=== PATIENT | female | born 1950 | race Caucasian/White ===

== ENCOUNTER 2016-06-06 12:02 | Emergency (ER) | payer MEDICARE, BC ==
[~2016-06-06 12:02] MED LIST: /WARF25TA OR; ACET500C OR; BIOTPOW20 PO; BISO10TA2 OR; CALC12502 OR; CALCTAB22 OR; MULTIVIT PO; PERC5TAB8 OR; VIT D 2000 PO; VITA500T OR; VITAMIN D PO
[2016-06-06 13:06] LABS: BASO # 0.1 K/mm3 (0.0-0.2); EOS % 0.6 % (0.0-3.0); LARGE UNSTAINED CELL # 0.1 K/mm3 (0.0-0.4); LARGE UNSTAINED CELL % 2.3 % (0.0-4.0); LYMPH # 0.7 K/mm3 (1.5-4.5); LYMPH % 10.9 % (24.0-44.0); MEAN CORPUSCULAR HGB CONC 31.9 g/dl (32.0-36.5); MONO # 0.5 K/mm3 (0.0-0.8); MONO % 8.8 % (0.0-5.0); NEUTROPHILS % 75.5 % (36.0-66.0); PLATELET COUNT, AUTOMATED 194 k/mm3 (150-450); RED CELL DISTRIBUTION WIDTH 13.4 % (11.5-14.5); WHITE BLOOD COUNT 5.3 K/mm3 (4.0-10.0)
[2016-06-06 13:22] LABS: ALBUMIN 3.8 GM/DL (3.2-5.2); ALBUMIN/GLOBULIN RATIO 0.97 (1.00-1.93); BILIRUBIN,DIRECT 0.1 MG/DL (0.0-0.2); BILIRUBIN,TOTAL 0.5 MG/DL (0.2-1.0); CALCIUM LEVEL 9.1 MG/DL (8.8-10.2); CREATININE FOR GFR 1.14 MG/DL (0.55-1.02); GLOMERULAR FILTRATION RATE 50.6 (>45); POTASSIUM SERUM 3.6 MEQ/L (3.5-5.1); TOTAL PROTEIN 7.7 GM/DL (6.4-8.2)
[2016-06-06] MEDS ORDERED: ACETAMINOPHEN 325 MG TAB As Ordered ONE (14:48)
[2016-06-06] MEDS ORDERED: ONDANSETRON 4MG/2ML VIAL (J2405) As Ordered ONE (14:48)
[2016-06-06] MEDS ORDERED: OSELTAMIVIR PHOSPHATE 75 MG CAP (TAMIFLU) As Ordered ONE (15:43)
--- NOTE | 2016-06-06 15:53 | REP ---
PA and lateral chest 06/06/2016 Indication: Cough and fever Comparison: PA and lateral chest 02/13/2013 performed at [facility] Findings: The cardiomediastinal silhouette is normal. Small amount of left basilar atelectasis and/or scarring is noted. There are diminished lung volumes bilaterally. There are [id number] degenerative changes in thoracic spine. Soft tissues are within normal limits Impression 1. Cardiomediastinal silhouette is normal. 2. Diminished lung volumes bilaterally. Small amount of left basilar atelectasis and/or scarring Signed by Ofelia Tobin MD 06/06/2016 03:44 P
--- NOTE | 2016-06-06 16:12 | EDDOCDS ---
Physician Documentation [facility] Name: Maribel Hamlin Age: 65 yrs Sex: Female : 1950 Arrival Date: 06/06/2016 Time: 12:02 Bed I1 / M1 Private MD: Amisha Zambrano E Disposition: 06/06/16 15:45 Discharged to Home/Self Care. Impression: Influenza due to identified novel influenza A virus. - Condition is Stable. - Discharge Instructions: Influenza Adult. - Prescriptions for Tamiflu 75 mg Oral Capsule - take 1 capsule by ORAL route every 12 hours for 5 days; 9 capsule. ZOFRAN ODT 4 mg - dissolve 1 tablet by ORAL route 4 times per day As needed do not chew, do not swallow whole; 10 tablet. - Medication Reconciliation, Work Release Form - 5 day, Local Pharmacy Hours form. - Follow up: Amisha Zambrano; When: 4 - 5 days; Reason: Recheck today's complaints. Follow up: Emergency Department; When: As needed; Reason: Fever > 102F, Trouble breathing, Worsening of conditions. - Problem is new. - Symptoms have improved. - Notes: stop z pack Historical: - Allergies: Ibuprofen; - Home Meds: 1. bisoprolol fumarate 5 mg oral tab 1 tab once daily (Last dose: 06/05/2016) 2. calcium 600 mg daily (Last dose: 06/05/2016) 3. fexofenadine 180 mg Oral tab 1 tab once daily (Last dose: 06/05/2016) 4. valsartan 160 mg oral tab 1 tab once daily with dinner (Last dose: 06/05/2016) 5. multivitamin Oral 1 tablet daily 6. Vitamin C Oral daily - PMHx: Hypertension; - PSHx: Hip replacements, bilateral; - Social history: Smoking status: Patient states former smoker of tobacco. No barriers to communication noted. - Family history: Not pertinent. - : The pt / caregiver states he / she is not on anticoagulants. Home medication list is obtained from the patient. - Exposure Risk Screening:: None identified. Vital Signs: 06/06 12:04 BP 155 / 93; Pulse 112; Resp 18 S; Temp 100.0(O); Pulse Ox 96% on R/A; Weight 104.33 kg gr2 / 230.01 lbs (R); Height 5 ft. 8 in. (172.72 cm) (R); Pain 6/10; 15:31 BP 127 / 64; Pulse 97; Resp 20; Temp 100.9; Pulse Ox 96% ; Pain 3/10; jam1 12:04 Body Mass Index 34.97 (104.33 kg, 172.72 cm) gr2 MDM: 12:36 If pre-RCE wait time >60 minutes, inform reg. staff to do full reg ordered. ar2 12:36 If pt is female >10yo <50yo order UCG ordered. ar2 12:36 Undress patient appropriately for examination ordered. ar2 12:36 BMP Ordered. EDMS 12:36 CBC with Diff Ordered. EDMS 12:36 Lipase Ordered. EDMS 12:36 Liver Profile Ordered. EDMS 12:37 UA Ordered. EDMS 14:34 BMP Reviewed. ar2 14:34 CBC with Diff Reviewed. ar2 14:34 Liver Profile Reviewed. ar2 14:34 UA Reviewed. ar2 14:34 Lipase Reviewed. ar2 14:37 Strep Screen, Nursing ordered. ar2 14:37 NS 0.9% 1000 ml IV at bolus once ordered. ar2 14:37 Ondansetron 4 mg IVP once ordered. ar2 14:37 Acetaminophen Tablet 975 mg PO once ordered. ar2 14:38 -Influenza A&B Rapid Antigen - Nose Ordered. EDMS 14:38 Chest, 2 View (pa\E\lat) Ordered. EDMS 14:38 Acetaminophen Tablet 975 mg PO once ordered. jf3 14:38 Ondansetron 4 mg IVP once ordered. jf3 14:38 NS 0.9% 1000 ml IV at bolus once ordered. jf3 14:39 IV Saline Lock ordered. jf3 14:41 Financial registration complete. jls1 14:56 [facility] Payment Agreement was scanned into [employer] and attached to record. jls1 15:37 -Influenza A&B Rapid Antigen - Nose Reviewed. ar2 15:39 GATS (NEGATIVE STREP SCREEN) Ordered. EDMS 15:42 Oseltamivir 75 mg PO once ordered. ar2 Administered Medications: 14:55 Drug: NS 0.9% 1000 ml [sodium chloride 0.9 % intravenous solution] Route: IV; Rate: srm bolus; Site: right antecubital; 16:11 Follow up: IV Status: Completed infusion; IV Intake: 1000ml dsf 14:55 Drug: Ondansetron 4 mg [ondansetron HCl 2 mg/mL intravenous solution (2 mL)] Route: [facility] IVP; Site: right antecubital; 14:55 Drug: Acetaminophen 975 mg [acetaminophen 325 mg tablet (3 tabs)] Route: PO; srm 15:47 Drug: Oseltamivir 75 mg [oseltamivir 75 mg capsule (1 caps)] Route: PO; srm Signatures: Dispatcher [employer] Collette Oviedo RN RN [facility] Emerson Lacey, PA-C PA-C ar2 Cadence Roth RN RN dsf Lilliana Estes RN RN Malissa Mccray jls1 Hernandez BoydRN RN jf3 The chart was reviewed and I authenticate all verbal orders and agree with the evaluation and treatment provided.Attachments: 14:56 [facility] Payment Agreement jls1 MTDD
--- NOTE | 2016-06-06 16:12 | EDDOCDS ---
Nurse's Notes [facility] Name: Maribel Hamlin Age: 65 yrs Sex: Female : 1950 Arrival Date: 06/06/2016 Time: 12:02 Bed I1 / M1 Private MD: Amisha Zambrano E Diagnosis: Influenza due to identified novel influenza A virus Presentation: 06/06 12:11 Presenting complaint: Patient states: I just don't feel good, got into see Dr. Cast's [facility] nurse yesterday, started her on a Z Pack but now still don't feel better, have headache, stomach pain and cough and my temperature is up. Adult Sepsis Screening: The patient does not have new or worsening altered mentation. Patient's respiratory rate is less than 22. Systolic blood pressure is greater than 100. Patient has a qSOFA score of 0- Negative Sepsis Screen. Suicide/Homicide risk assessment- the patient denies having any suicidal and/or homicidal ideations and does not present with any other emotional, behavioral or mental health complaints. 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 Transition of care: patient was not received from another setting of care. 12:11 Acuity: SHAHEEN Level 3 [facility] 12:11 Method Of Arrival: Wheelchair [facility] Triage Assessment: 12:16 General: Appears ill, Behavior is anxious, cooperative. Pain: Location: head Pain [facility] currently is 6 out of 10 on a pain scale. Neurological: Level of Consciousness is awake, alert, Oriented to person, place, time. Respiratory: Airway is patent Respiratory effort is even, unlabored, Respiratory pattern is regular, symmetrical. GI: Reports nausea, vomiting. Derm: Skin is pink, warm & dry. Historical: - Allergies: Ibuprofen; - Home Meds: 1. bisoprolol fumarate 5 mg oral tab 1 tab once daily (Last dose: 06/05/2016) 2. calcium 600 mg daily (Last dose: 06/05/2016) 3. fexofenadine 180 mg Oral tab 1 tab once daily (Last dose: 06/05/2016) 4. valsartan 160 mg oral tab 1 tab once daily with dinner (Last dose: 06/05/2016) 5. multivitamin Oral 1 tablet daily 6. Vitamin C Oral daily - PMHx: Hypertension; - PSHx: Hip replacements, bilateral; - Social history: Smoking status: Patient states former smoker of tobacco. No barriers to communication noted. - Family history: Not pertinent. - : The pt / caregiver states he / she is not on anticoagulants. Home medication list is obtained from the patient. - Exposure Risk Screening:: None identified. Screenin:11 Screening information is obtained from the patient. Fall risk: No risks identified. dsf Assistance ADL's: requires no assistance with activities of daily living. Abuse/DV Screen: The patient / caregiver reports he/she is: not in a situation that causes fear, pain or injury. Nutritional screening: No deficits noted. Advance Directives: Currently, there is no health care proxy. home support is adequate. Assessment: 15:00 General: Appears uncomfortable, making grunting noises with movement. . Neurological: srm Level of Consciousness is awake, alert, Oriented to person, place, time, Moves all extremities. Full function Speech is normal, Facial symmetry appears normal. GI: Abdomen is obese, Bowel sounds present X 4 quads. Abd is soft and non tender X 4 quads. Reports nausea, vomiting. Derm: lips and tongue dry. 15:47 General: Appears in no apparent distress, Behavior is appropriate for age, cooperative. srm Neurological: No deficits noted. EENT: No deficits noted. EENT: throat sounds full. Cardiovascular: No deficits noted. Respiratory: No deficits noted. Vital Signs: 12:04 BP 155 / 93; Pulse 112; Resp 18 S; Temp 100.0(O); Pulse Ox 96% on R/A; Weight 104.33 kg gr2 (R); Height 5 ft. 8 in. (172.72 cm) (R); Pain 6/10; 15:31 BP 127 / 64; Pulse 97; Resp 20; Temp 100.9; Pulse Ox 96% ; Pain 3/10; jam1 12:04 Body Mass Index 34.97 (104.33 kg, 172.72 cm) gr2 Vitals: 12:04 Log In Time: June 06, 2016 at 12:04. gr2 15:37 Strep Screen is obtained and tested: Negative, [facility]G [facility] sent. ED Course: 12:03 Patient visited by Adriano Moreno. gr2 12:03 Patient moved to Waiting gr2 12:04 Amisha Zambrano is Private Physician. gr2 12:05 Patient visited by Adriano Moreno. gr2 12:05 Patient moved to Pre RCE gr2 12:13 Triage Initiated cjh 12:50 Patient moved to PR1 / 25 sew 12:58 Patient moved to Pre RCE sew 12:58 UA Sent. sew 12:58 BMP Sent. sew 12:58 CBC with Diff Sent. sew 12:58 Lipase Sent. sew 12:58 Liver Profile Sent. sew 12:58 Labs drawn. (by ED staff). Sent per order to lab. Urine collected. Clean catch sew specimen. Urine specimen sent to lab. 12:59 Patient visited by Guadalupe Dempsey. sew 13:06 Patient moved to Triage 1 kr3 14:25 Emerson Lacey PA-C is PHCP. ar2 14:25 Davide Bowman MD is Attending Physician. ar2 14:25 Patient visited by Emerson Lacey PA-C. ar2 14:39 Patient moved to I1 / M1 jf3 14:56 [facility] Payment Agreement was scanned into [employer] and attached to record. jls1 15:00 -Influenza A&B Rapid Antigen - Nose Sent. srm 15:00 Inserted saline lock: 20 gauge in right antecubital area and blood collected. srm 15:02 Patient visited by Collette Ugarte RN. srm 15:16 Patient visited by Lilliana Chnu PCA. jam1 15:42 GATS (NEGATIVE STREP SCREEN) Sent. srm 15:44 Amisha Zambrano is Referral Physician. ar2 15:48 Patient visited by Collette Ugarte RN. srm 16:08 Chest, 2 View (pa\E\lat) Returned. EDMS 16:11 The patient / caregiver is instructed regarding the plan of care and ED course. dsf 16:11 Discontinued lock intact, bleeding controlled, pressure dressing applied, No dsf redness/swelling at site. No procedures done that require assistance. Administered Medications: 14:55 Drug: NS 0.9% 1000 ml [sodium chloride 0.9 % intravenous solution] Route: IV; Rate: srm bolus; Site: right antecubital; 16:11 Follow up: IV Status: Completed infusion; IV Intake: 1000ml dsf 14:55 Drug: Ondansetron 4 mg [ondansetron HCl 2 mg/mL intravenous solution (2 mL)] Route: srm IVP; Site: right antecubital; 14:55 Drug: Acetaminophen 975 mg [acetaminophen 325 mg tablet (3 tabs)] Route: PO; srm 15:47 Drug: Oseltamivir 75 mg [oseltamivir 75 mg capsule (1 caps)] Route: PO; srm Intake: 16:11 IV: 1000.00ml; Total: 1000.00ml. dsf Order Results: Lab Order: BMP; SPEC'M 06/06/16 12:58 Test: GLUCOSE, FASTING; Value: 110; Range: 80-110; Units: MG/DL; Status: F Test: BLOOD UREA NITROGEN; Value: 12; Range: 7-18; Units: MG/DL; Status: F Test: CREATININE FOR GFR; Value: 1.14; Range: 0.55-1.02; Abnormal: Above high normal; Units: MG/DL; Status: F Test: GLOMERULAR FILTRATION RATE; Value: 50.6; Range: >45; Status: F Test: SODIUM LEVEL; Value: 140; Range: 136-145; Units: MEQ/L; Status: F Test: POTASSIUM SERUM; Value: 3.6; Range: 3.5-5.1; Units: MEQ/L; Status: F Test: CHLORIDE LEVEL; Value: 104; Range: 98-107; Units: MEQ/L; Status: F Test: CARBON DIOXIDE LEVEL; Value: 28; Range: 21-32; Units: MEQ/L; Status: F Test: ANION GAP; Value: 8; Range: 8-16; Units: MEQ/L; Status: F Test: CALCIUM LEVEL; Value: 9.1; Range: 8.8-10.2; Units: MG/DL; Status: F Test Note: ; Units are mL/min/1.73 m2 Chronic Kidney Disease Staging per NKF: Stage I & II GFR >=60 Normal to Mildly Decreased Stage III GFR 30-59 Moderately Decreased Stage IV GFR 15-29 Severely Decreased Stage V GFR <15 Very Little GFR Left ESRD GFR <15 on NOC TECHNICIAN Lab Order: CBC with Diff; SPEC'M 06/06/16 12:58 Test: WHITE BLOOD COUNT; Value: 5.3; Range: 4.0-10.0; Units: K/mm3; Status: F Test: RED BLOOD COUNT; Value: 4.84; Range: 4.00-5.40; Units: M/mm3; Status: F Test: HEMOGLOBIN; Value: 14.1; Range: 12.0-16.0; Units: g/dl; Status: F Test: HEMATOCRIT; Value: 44.1; Range: 36.0-47.0; Units: %; Status: F Test: MEAN CORPUSCULAR VOLUME; Value: 91.0; Range: 80.0-96.0; Units: fl; Status: F Test: MEAN CORPUSCULAR HEMOGLOBIN; Value: 29.0; Range: 27.0-33.0; Units: pg; Status: F Test: MEAN CORPUSCULAR HGB CONC; Value: 31.9; Range: 32.0-36.5; Abnormal: Below low normal; Units: g/dl; Status: F Test: RED CELL DISTRIBUTION WIDTH; Value: 13.4; Range: 11.5-14.5; Units: %; Status: F Test: PLATELET COUNT, AUTOMATED; Value: 194; Range: 150-450; Units: k/mm3; Status: F Test: NEUTROPHILS %; Value: 75.5; Range: 36.0-66.0; Abnormal: Above high normal; Units: %; Status: F Test: LYMPH %; Value: 10.9; Range: 24.0-44.0; Abnormal: Below low normal; Units: %; Status: F Test: MONO %; Value: 8.8; Range: 0.0-5.0; Abnormal: Above high normal; Units: %; Status: F Test: EOS %; Value: 0.6; Range: 0.0-3.0; Units: %; Status: F Test: BASO %; Value: 2.0; Range: 0.0-1.0; Abnormal: Above high normal; Units: %; Status: F Test: LARGE UNSTAINED CELL %; Value: 2.3; Range: 0.0-4.0; Units: %; Status: F Test: NEUTROPHILS #; Value: 4.0; Range: 1.8-7.7; Units: K/mm3; Status: F Test: LYMPH #; Value: 0.7; Range: 1.5-4.5; Abnormal: Below low normal; Units: K/mm3; Status: F Test: MONO #; Value: 0.5; Range: 0.0-0.8; Units: K/mm3; Status: F Test: EOS #; Value: 0.0; Range: 0.0-0.50; Units: K/mm3; Status: F Test: BASO #; Value: 0.1; Range: 0.0-0.2; Units: K/mm3; Status: F Test: LARGE UNSTAINED CELL #; Value: 0.1; Range: 0.0-0.4; Units: K/mm3; Status: F Lab Order: Lipase; [facility] 06/06/16 12:58 Test: LIPASE; Value: 77; Range: 73-393; Units: U/L; Status: F Lab Order: Liver Profile; [facility]' 06/06/16 12:58 Test: AST/SGOT; Value: 23; Range: 15-37; Units: U/L; Status: F Test: ALT/SGPT; Value: 36; Range: 12-78; Units: U/L; Status: F Test: ALKALINE PHOSPHATASE; Value: 109; Range: 45-117; Units: U/L; Status: F Test: BILIRUBIN,TOTAL; Value: 0.5; Range: 0.2-1.0; Units: MG/DL; Status: F Test: BILIRUBIN,DIRECT; Value: 0.1; Range: 0.0-0.2; Units: MG/DL; Status: F Test: TOTAL PROTEIN; Value: 7.7; Range: 6.4-8.2; Units: GM/DL; Status: F Test: ALBUMIN; Value: 3.8; Range: 3.2-5.2; Units: GM/DL; Status: F Test: ALBUMIN/GLOBULIN RATIO; Value: 0.97; Range: 1.00-1.93; Abnormal: Below low normal; Status: F Lab Order: UA; [facility] 06/06/16 12:53 Test: APPEARANCE, URINE; Value: CLOUDY; Range: CLEAR; Abnormal: Above high normal; Status: F Test: COLOR, URINE; Value: YELLOW; Range: YELLOW; Status: F Test: PH,URINE; Value: 6.0; Range: 5.0-9.0; Units: UNITS; Status: F Test: SPECIFIC GRAVITY URINE AUTO; Value: 1.026; Range: 1.002-1.035; Status: F Test: PROTEIN, URINE AUTO; Value: 2+; Range: NEGATIVE; Abnormal: Above high normal; Units: mg/dL; Status: F Test: GLUCOSE, URINE (UA) AUTO; Value: 1+; Range: NEGATIVE; Abnormal: Above high normal; Units: mg/dL; Status: F Test: KETONE, URINE AUTO; Value: 1+; Range: NEGATIVE; Abnormal: Above high normal; Units: mg/dL; Status: F Test: UROBILINOGEN, URINE AUTO; Value: 0.2; Range: 0.0-2.0; Units: mg/dL; Status: F Test: BILIRUBIN, URINE AUTO; Value: NEGATIVE; Range: NEGATIVE; Status: F Test: NITRITE, URINE AUTO; Value: NEGATIVE; Range: NEGATIVE; Status: F Test: LEUKOCYTE ESTERASE, URINE AUTO; Value: 2+; Range: NEGATIVE; Abnormal: Above high normal; Status: F Test: BLOOD, URINE BLOOD; Value: 1+; Range: NEGATIVE; Abnormal: Above high normal; Status: F Test: WBC, URINE AUTO; Value: 41; Range: 0-3; Abnormal: Above high normal; Units: /HPF; Status: F Test: RBC, URINE AUTO; Value: 43; Range: 0-3; Abnormal: Above high normal; Units: /HPF; Status: F Test: BACTERIA, URINE AUTO; Value: NEGATIVE; Range: NEGATIVE; Status: F Test: SQUAMOUS EPITHELIAL CELL UR AU; Value: 42; Range: 0-6; Units: /HPF; Status: F Test: MUCUS, URINE; Value: SMALL; Range: NEGATIVE; Status: F Test: HYALINE CAST, URINE AUTO; Value: 0; Range: 0-1; Units: /LPF; Status: F Lab Order: -Influenza A&B Rapid Antigen - Nose; SPEC'M 06/06/16 14:57 Test: INFLUENZA A RAPID SCR by ICA; Value: INFLUENZA A RESULTS POSITIVE; Abnormal: Abnormal; Status: F Test: INFLUENZA A RAPID SCR by ICA; Value: Comments:; Status: F Test: INFLUENZA B RAPID SCR by ICA; Value: INFLUENZA B RESULTS NEGATIVE; Status: F Test Note: ; The Influenza test is a direct rapid immunoassay for the qualitative detection of Influenza viral antigen. Cell culture (Viral Culture) testing should be considered to confirm NEGATIVE results and to assist in detecting other viruses that can provide similar clinical symptoms. Please contact the lab within 24 hours ([phone]) if confirmatory testing is desired. Radiology Order: Chest, 2 View (pa\E\lat) Test: Chest, 2 View (pa\E\lat) REASON FOR EXAMINATION: cough, fever; PA and lateral chest 06/06/2016; ; Indication: Cough and fever; ; Comparison: PA and lateral chest 02/13/2013 performed at [facility]; ; Findings: The cardiomediastinal silhouette is normal. Small amount of left; basilar atelectasis and/or scarring is noted. There are diminished lung volumes; bilaterally. There are pfts-ok-ebaqiell degenerative changes in thoracic spine.; Soft tissues are within normal limits; ; Impression; 1. Cardiomediastinal silhouette is normal.; 2. Diminished lung volumes bilaterally. Small amount of left basilar; atelectasis and/or scarring; ; ; ; ; Signed by; Ofelia Tobin MD 06/06/2016 03:44 P; Outcome: 15:45 Discharge ordered by Provider. ar2 16:11 Discharge Assessment: Patient awake, alert and oriented x 3. No cognitive and/or dsf functional deficits noted. Patient verbalized understanding of disposition instructions. patient administered narcotics - no. The following High Risk Discharge criteria are identified: None. Discharged to home ambulatory, with significant other. Condition: stable. Discharge instructions given to patient, Instructed on discharge instructions, follow up and referral plans. medication usage, Demonstrated understanding of instructions, medications, Pt was receptive of discharge instructions/ teaching. Prescriptions given X 2, Work note provided to patient. No special radiology studies were completed. Property sent home with patient. 16:12 Patient left the ED. dsf Signatures: Dispatcher [employer] EDMS Collette Ugarte, RN RN Lilliana Doll, NARENDRA UNDERCOVER COP jam1 Anamaria Rios,RN RN kr3 Emerson Lacey PA-C PA-C ar2 Cadence Roth,RN RN dsf Lilliana Estes,RN RN Guadalupe Dixon Gainslee gr2 Malissa Turk jls1 Hernandez Boyd,RN RN jf3 MTDD
--- NOTE | 2016-06-08 17:13 | EDDOCDS ---
Nurse's Notes [facility] Name: Maribel Hamlin Age: 65 yrs Sex: Female : 1950 Arrival Date: 06/06/2016 Time: 12:02 Bed I1 / M1 Private MD: Amisha Zambrano E Diagnosis: Influenza due to identified novel influenza A virus Presentation: 06/06 12:11 Presenting complaint: Patient states: I just don't feel good, got into see Dr. Cast's [facility] nurse yesterday, started her on a Z Pack but now still don't feel better, have headache, stomach pain and cough and my temperature is up. Adult Sepsis Screening: The patient does not have new or worsening altered mentation. Patient's respiratory rate is less than 22. Systolic blood pressure is greater than 100. Patient has a qSOFA score of 0- Negative Sepsis Screen. Suicide/Homicide risk assessment- the patient denies having any suicidal and/or homicidal ideations and does not present with any other emotional, behavioral or mental health complaints. Status: Patient is not a claims service adjustor or dependent. Transition of care: patient was not received from another setting of care. 12:11 Acuity: SHAHEEN Level 3 [facility] 12:11 Method Of Arrival: Wheelchair [facility] Triage Assessment: 12:16 General: Appears ill, Behavior is anxious, cooperative. Pain: Location: head Pain [facility] currently is 6 out of 10 on a pain scale. Neurological: Level of Consciousness is awake, alert, Oriented to person, place, time. Respiratory: Airway is patent Respiratory effort is even, unlabored, Respiratory pattern is regular, symmetrical. GI: Reports nausea, vomiting. Derm: Skin is pink, warm & dry. Historical: - Allergies: Ibuprofen; - Home Meds: 1. bisoprolol fumarate 5 mg oral tab 1 tab once daily (Last dose: 06/05/2016) 2. calcium 600 mg daily (Last dose: 06/05/2016) 3. fexofenadine 180 mg Oral tab 1 tab once daily (Last dose: 06/05/2016) 4. valsartan 160 mg oral tab 1 tab once daily with dinner (Last dose: 06/05/2016) 5. multivitamin Oral 1 tablet daily 6. Vitamin C Oral daily - PMHx: Hypertension; - PSHx: Hip replacements, bilateral; - Social history: Smoking status: Patient states former smoker of tobacco. No barriers to communication noted. - Family history: Not pertinent. - : The pt / caregiver states he / she is not on anticoagulants. Home medication list is obtained from the patient. - Exposure Risk Screening:: None identified. Screenin:11 Screening information is obtained from the patient. Fall risk: No risks identified. dsf Assistance ADL's: requires no assistance with activities of daily living. Abuse/DV Screen: The patient / caregiver reports he/she is: not in a situation that causes fear, pain or injury. Nutritional screening: No deficits noted. Advance Directives: Currently, there is no health care proxy. home support is adequate. Assessment: 15:00 General: Appears uncomfortable, making grunting noises with movement. . Neurological: srm Level of Consciousness is awake, alert, Oriented to person, place, time, Moves all extremities. Full function Speech is normal, Facial symmetry appears normal. GI: Abdomen is obese, Bowel sounds present X 4 quads. Abd is soft and non tender X 4 quads. Reports nausea, vomiting. Derm: lips and tongue dry. 15:47 General: Appears in no apparent distress, Behavior is appropriate for age, cooperative. srm Neurological: No deficits noted. EENT: No deficits noted. EENT: throat sounds full. Cardiovascular: No deficits noted. Respiratory: No deficits noted. Vital Signs: 12:04 BP 155 / 93; Pulse 112; Resp 18 S; Temp 100.0(O); Pulse Ox 96% on R/A; Weight 104.33 kg gr2 (R); Height 5 ft. 8 in. (172.72 cm) (R); Pain 6/10; 15:31 BP 127 / 64; Pulse 97; Resp 20; Temp 100.9; Pulse Ox 96% ; Pain 3/10; jam1 12:04 Body Mass Index 34.97 (104.33 kg, 172.72 cm) gr2 Vitals: 12:04 Log In Time: June 06, 2016 at 12:04. gr2 15:37 Strep Screen is obtained and tested: Negative, [facility]G [facility] and sent. ED Course: 12:03 Patient visited by Adriano Moreno. gr2 12:03 Patient moved to Waiting gr2 12:04 Amisha Zambrano is Private Physician. gr2 12:05 Patient visited by Adriano Moreno. gr2 12:05 Patient moved to Pre RCE gr2 12:13 Triage Initiated cjh 12:50 Patient moved to PR1 / 25 sew 12:58 Patient moved to Pre RCE sew 12:58 UA Sent. sew 12:58 BMP Sent. sew 12:58 CBC with Diff Sent. sew 12:58 Lipase Sent. sew 12:58 Liver Profile Sent. sew 12:58 Labs drawn. (by ED staff). Sent per order to lab. Urine collected. Clean catch sew specimen. Urine specimen sent to lab. 12:59 Patient visited by Guadalupe Dempsey. sew 13:06 Patient moved to Triage 1 kr3 14:25 Emerson Lacey PA-C is PHCP. ar2 14:25 Davide Bowman MD is Attending Physician. ar2 14:25 Patient visited by Emerson Lacey PA-C. ar2 14:39 Patient moved to I1 / M1 jf3 14:56 [facility] Payment Agreement was scanned into [employer] and attached to record. jls1 15:00 -Influenza A&B Rapid Antigen - Nose Sent. srm 15:00 Inserted saline lock: 20 gauge in right antecubital area and blood collected. srm 15:02 Patient visited by Collette Ugarte RN. srm 15:16 Patient visited by Lilliana Chun PCA. jam1 15:42 GATS (NEGATIVE STREP SCREEN) Sent. srm 15:44 Amisha Zambrano is Referral Physician. ar2 15:48 Patient visited by Collette Ugarte RN. srm 16:08 Chest, 2 View (pa\E\lat) Returned. EDMS 16:11 The patient / caregiver is instructed regarding the plan of care and ED course. dsf 16:11 Discontinued lock intact, bleeding controlled, pressure dressing applied, No dsf redness/swelling at site. No procedures done that require assistance. 06/07 17:45 T-Sheet-- Draft Copy was scanned into [employer] and attached to record. klr Administered Medications: 06/06 14:55 Drug: NS 0.9% 1000 ml [sodium chloride 0.9 % intravenous solution] Route: IV; Rate: srm bolus; Site: right antecubital; 16:11 Follow up: IV Status: Completed infusion; IV Intake: 1000ml dsf 14:55 Drug: Ondansetron 4 mg [ondansetron HCl 2 mg/mL intravenous solution (2 mL)] Route: srm IVP; Site: right antecubital; 14:55 Drug: Acetaminophen 975 mg [acetaminophen 325 mg tablet (3 tabs)] Route: PO; srm 15:47 Drug: Oseltamivir 75 mg [oseltamivir 75 mg capsule (1 caps)] Route: PO; srm Intake: 16:11 IV: 1000.00ml; Total: 1000.00ml. dsf Order Results: Lab Order: BMP; SPEC'M 06/06/16 12:58 Test: GLUCOSE, FASTING; Value: 110; Range: 80-110; Units: MG/DL; Status: F Test: BLOOD UREA NITROGEN; Value: 12; Range: 7-18; Units: MG/DL; Status: F Test: CREATININE FOR GFR; Value: 1.14; Range: 0.55-1.02; Abnormal: Above high normal; Units: MG/DL; Status: F Test: GLOMERULAR FILTRATION RATE; Value: 50.6; Range: >45; Status: F Test: SODIUM LEVEL; Value: 140; Range: 136-145; Units: MEQ/L; Status: F Test: POTASSIUM SERUM; Value: 3.6; Range: 3.5-5.1; Units: MEQ/L; Status: F Test: CHLORIDE LEVEL; Value: 104; Range: 98-107; Units: MEQ/L; Status: F Test: CARBON DIOXIDE LEVEL; Value: 28; Range: 21-32; Units: MEQ/L; Status: F Test: ANION GAP; Value: 8; Range: 8-16; Units: MEQ/L; Status: F Test: CALCIUM LEVEL; Value: 9.1; Range: 8.8-10.2; Units: MG/DL; Status: F Test Note: ; Units are mL/min/1.73 m2 Chronic Kidney Disease Staging per NKF: Stage I & II GFR >=60 Normal to Mildly Decreased Stage III GFR 30-59 Moderately Decreased Stage IV GFR 15-29 Severely Decreased Stage V GFR <15 Very Little GFR Left ESRD GFR <15 on SKE[facility] [employer]ER Lab Order: CBC with Diff; SPEC'M 06/06/16 12:58 Test: WHITE BLOOD COUNT; Value: 5.3; Range: 4.0-10.0; Units: K/mm3; Status: F Test: RED BLOOD COUNT; Value: 4.84; Range: 4.00-5.40; Units: M/mm3; Status: F Test: HEMOGLOBIN; Value: 14.1; Range: 12.0-16.0; Units: g/dl; Status: F Test: HEMATOCRIT; Value: 44.1; Range: 36.0-47.0; Units: %; Status: F Test: MEAN CORPUSCULAR VOLUME; Value: 91.0; Range: 80.0-96.0; Units: fl; Status: F Test: MEAN CORPUSCULAR HEMOGLOBIN; Value: 29.0; Range: 27.0-33.0; Units: pg; Status: F Test: MEAN CORPUSCULAR HGB CONC; Value: 31.9; Range: 32.0-36.5; Abnormal: Below low normal; Units: g/dl; Status: F Test: RED CELL DISTRIBUTION WIDTH; Value: 13.4; Range: 11.5-14.5; Units: %; Status: F Test: PLATELET COUNT, AUTOMATED; Value: 194; Range: 150-450; Units: k/mm3; Status: F Test: NEUTROPHILS %; Value: 75.5; Range: 36.0-66.0; Abnormal: Above high normal; Units: %; Status: F Test: LYMPH %; Value: 10.9; Range: 24.0-44.0; Abnormal: Below low normal; Units: %; Status: F Test: MONO %; Value: 8.8; Range: 0.0-5.0; Abnormal: Above high normal; Units: %; Status: F Test: EOS %; Value: 0.6; Range: 0.0-3.0; Units: %; Status: F Test: BASO %; Value: 2.0; Range: 0.0-1.0; Abnormal: Above high normal; Units: %; Status: F Test: LARGE UNSTAINED CELL %; Value: 2.3; Range: 0.0-4.0; Units: %; Status: F Test: NEUTROPHILS #; Value: 4.0; Range: 1.8-7.7; Units: K/mm3; Status: F Test: LYMPH #; Value: 0.7; Range: 1.5-4.5; Abnormal: Below low normal; Units: K/mm3; Status: F Test: MONO #; Value: 0.5; Range: 0.0-0.8; Units: K/mm3; Status: F Test: EOS #; Value: 0.0; Range: 0.0-0.50; Units: K/mm3; Status: F Test: BASO #; Value: 0.1; Range: 0.0-0.2; Units: K/mm3; Status: F Test: LARGE UNSTAINED CELL #; Value: 0.1; Range: 0.0-0.4; Units: K/mm3; Status: F Lab Order: Lipase; [facility]' 06/06/16 12:58 Test: LIPASE; Value: 77; Range: 73-393; Units: U/L; Status: F Lab Order: Liver Profile; [facility]' 06/06/16 12:58 Test: AST/SGOT; Value: 23; Range: 15-37; Units: U/L; Status: F Test: ALT/SGPT; Value: 36; Range: 12-78; Units: U/L; Status: F Test: ALKALINE PHOSPHATASE; Value: 109; Range: 45-117; Units: U/L; Status: F Test: BILIRUBIN,TOTAL; Value: 0.5; Range: 0.2-1.0; Units: MG/DL; Status: F Test: BILIRUBIN,DIRECT; Value: 0.1; Range: 0.0-0.2; Units: MG/DL; Status: F Test: TOTAL PROTEIN; Value: 7.7; Range: 6.4-8.2; Units: GM/DL; Status: F Test: ALBUMIN; Value: 3.8; Range: 3.2-5.2; Units: GM/DL; Status: F Test: ALBUMIN/GLOBULIN RATIO; Value: 0.97; Range: 1.00-1.93; Abnormal: Below low normal; Status: F Lab Order: UA; [facility]' 06/06/16 12:53 Test: APPEARANCE, URINE; Value: CLOUDY; Range: CLEAR; Abnormal: Above high normal; Status: F Test: COLOR, URINE; Value: YELLOW; Range: YELLOW; Status: F Test: PH,URINE; Value: 6.0; Range: 5.0-9.0; Units: UNITS; Status: F Test: SPECIFIC GRAVITY URINE AUTO; Value: 1.026; Range: 1.002-1.035; Status: F Test: PROTEIN, URINE AUTO; Value: 2+; Range: NEGATIVE; Abnormal: Above high normal; Units: mg/dL; Status: F Test: GLUCOSE, URINE (UA) AUTO; Value: 1+; Range: NEGATIVE; Abnormal: Above high normal; Units: mg/dL; Status: F Test: KETONE, URINE AUTO; Value: 1+; Range: NEGATIVE; Abnormal: Above high normal; Units: mg/dL; Status: F Test: UROBILINOGEN, URINE AUTO; Value: 0.2; Range: 0.0-2.0; Units: mg/dL; Status: F Test: BILIRUBIN, URINE AUTO; Value: NEGATIVE; Range: NEGATIVE; Status: F Test: NITRITE, URINE AUTO; Value: NEGATIVE; Range: NEGATIVE; Status: F Test: LEUKOCYTE ESTERASE, URINE AUTO; Value: 2+; Range: NEGATIVE; Abnormal: Above high normal; Status: F Test: BLOOD, URINE BLOOD; Value: 1+; Range: NEGATIVE; Abnormal: Above high normal; Status: F Test: WBC, URINE AUTO; Value: 41; Range: 0-3; Abnormal: Above high normal; Units: /HPF; Status: F Test: RBC, URINE AUTO; Value: 43; Range: 0-3; Abnormal: Above high normal; Units: /HPF; Status: F Test: BACTERIA, URINE AUTO; Value: NEGATIVE; Range: NEGATIVE; Status: F Test: SQUAMOUS EPITHELIAL CELL UR AU; Value: 42; Range: 0-6; Units: /HPF; Status: F Test: MUCUS, URINE; Value: SMALL; Range: NEGATIVE; Status: F Test: HYALINE CAST, URINE AUTO; Value: 0; Range: 0-1; Units: /LPF; Status: F Lab Order: -Influenza A&B Rapid Antigen - Nose; SPEC'M 06/06/16 14:57 Test: INFLUENZA A RAPID SCR by ICA; Value: INFLUENZA A RESULTS POSITIVE; Abnormal: Abnormal; Status: F Test: INFLUENZA A RAPID SCR by ICA; Value: Comments:; Status: F Test: INFLUENZA B RAPID SCR by ICA; Value: INFLUENZA B RESULTS NEGATIVE; Status: F Test Note: ; The Influenza test is a direct rapid immunoassay for the qualitative detection of Influenza viral antigen. Cell culture (Viral Culture) testing should be considered to confirm NEGATIVE results and to assist in detecting other viruses that can provide similar clinical symptoms. Please contact the lab within 24 hours ([phone] if confirmatory testing is desired. Lab Order: GATS (NEGATIVE STREP SCREEN); SPEC'M 06/06/16 14:57 Test: GATS CULTURE (NEG STREP SCR); Value: GATS RESULT NEGATIVE FOR STREP PYOGENES (GROUP A); Status: F Radiology Order: Chest, 2 View (pa\E\lat) Test: Chest, 2 View (pa\E\lat) REASON FOR EXAMINATION: cough, fever; PA and lateral chest 06/06/2016; ; Indication: Cough and fever; ; Comparison: PA and lateral chest 02/13/2013 performed at [facility]; ; Findings: The cardiomediastinal silhouette is normal. Small amount of left; basilar atelectasis and/or scarring is noted. There are diminished lung volumes; bilaterally. There are [id number] degenerative changes in thoracic spine.; Soft tissues are within normal limits; ; Impression; 1. Cardiomediastinal silhouette is normal.; 2. Diminished lung volumes bilaterally. Small amount of left basilar; atelectasis and/or scarring; ; ; ; ; Signed by; Ofelia Tobin MD 06/06/2016 03:44 P; Outcome: 15:45 Discharge ordered by Provider. ar2 16:11 Discharge Assessment: Patient awake, alert and oriented x 3. No cognitive and/or dsf functional deficits noted. Patient verbalized understanding of disposition instructions. patient administered narcotics - no. The following High Risk Discharge criteria are identified: None. Discharged to home ambulatory, with significant other. Condition: stable. Discharge instructions given to patient, Instructed on discharge instructions, follow up and referral plans. medication usage, Demonstrated understanding of instructions, medications, Pt was receptive of discharge instructions/ teaching. Prescriptions given X 2, Work note provided to patient. No special radiology studies were completed. Property sent home with patient. 16:12 Patient left the ED. dsf Signatures: Dispatcher [employer] EDMS Collette Ugarte, RN RN Lilliana Doll, LOCKSTITCH SLEEVE SETTER LOCKSTITCH SLEEVE SETTER jam1 Anamaria Rios RN RN kr3 Emerson Lacey PACarmel PA-C ar2 Cadence Roth,RN RN Lilliana Elaine,RN RN bebo Dempsey, Adriano Peña 2 Malissa Turk [facility] Hernandez Boyd,RN RN jf3 Rosy Curry Chart Complete MTDD
--- NOTE | 2016-06-08 17:13 | EDDOCDS ---
Physician Documentation [facility] Name: Maribel Hamlin Age: 65 yrs Sex: Female : 1950 Arrival Date: 06/06/2016 Time: 12:02 Bed I1 / M1 Private MD: Amisha Zambrano E Disposition: 06/06/16 15:45 Discharged to Home/Self Care. Impression: Influenza due to identified novel influenza A virus. - Condition is Stable. - Discharge Instructions: Influenza Adult. - Prescriptions for Tamiflu 75 mg Oral Capsule - take 1 capsule by ORAL route every 12 hours for 5 days; 9 capsule. ZOFRAN ODT 4 mg - dissolve 1 tablet by ORAL route 4 times per day As needed do not chew, do not swallow whole; 10 tablet. - Medication Reconciliation, Work Release Form - 5 day, Local Pharmacy Hours form. - Follow up: Amisha Zambrano; When: 4 - 5 days; Reason: Recheck today's complaints. Follow up: Emergency Department; When: As needed; Reason: Fever > 102F, Trouble breathing, Worsening of conditions. - Problem is new. - Symptoms have improved. - Notes: stop z pack Historical: - Allergies: Ibuprofen; - Home Meds: 1. bisoprolol fumarate 5 mg oral tab 1 tab once daily (Last dose: 06/05/2016) 2. calcium 600 mg daily (Last dose: 06/05/2016) 3. fexofenadine 180 mg Oral tab 1 tab once daily (Last dose: 06/05/2016) 4. valsartan 160 mg oral tab 1 tab once daily with dinner (Last dose: 06/05/2016) 5. multivitamin Oral 1 tablet daily 6. Vitamin C Oral daily - PMHx: Hypertension; - PSHx: Hip replacements, bilateral; - Social history: Smoking status: Patient states former smoker of tobacco. No barriers to communication noted. - Family history: Not pertinent. - : The pt / caregiver states he / she is not on anticoagulants. Home medication list is obtained from the patient. - Exposure Risk Screening:: None identified. Vital Signs: 06/06 12:04 BP 155 / 93; Pulse 112; Resp 18 S; Temp 100.0(O); Pulse Ox 96% on R/A; Weight 104.33 kg gr2 / 230.01 lbs (R); Height 5 ft. 8 in. (172.72 cm) (R); Pain 6/10; 15:31 BP 127 / 64; Pulse 97; Resp 20; Temp 100.9; Pulse Ox 96% ; Pain 3/10; jam1 12:04 Body Mass Index 34.97 (104.33 kg, 172.72 cm) gr2 MDM: 12:36 If pre-RCE wait time >60 minutes, inform reg. staff to do full reg ordered. ar2 12:36 If pt is female >10yo <50yo order UCG ordered. ar2 12:36 Undress patient appropriately for examination ordered. ar2 12:36 BMP Ordered. EDMS 12:36 CBC with Diff Ordered. EDMS 12:36 Lipase Ordered. EDMS 12:36 Liver Profile Ordered. EDMS 12:37 UA Ordered. EDMS 14:34 BMP Reviewed. ar2 14:34 CBC with Diff Reviewed. ar2 14:34 Liver Profile Reviewed. ar2 14:34 UA Reviewed. ar2 14:34 Lipase Reviewed. ar2 14:37 Strep Screen, Nursing ordered. ar2 14:37 NS 0.9% 1000 ml IV at bolus once ordered. ar2 14:37 Ondansetron 4 mg IVP once ordered. ar2 14:37 Acetaminophen Tablet 975 mg PO once ordered. ar2 14:38 -Influenza A&B Rapid Antigen - Nose Ordered. EDMS 14:38 Chest, 2 View (pa\E\lat) Ordered. EDMS 14:38 Acetaminophen Tablet 975 mg PO once ordered. jf3 14:38 Ondansetron 4 mg IVP once ordered. jf3 14:38 NS 0.9% 1000 ml IV at bolus once ordered. jf3 14:39 IV Saline Lock ordered. jf3 14:41 Financial registration complete. jls1 14:56 [facility] Payment Agreement was scanned into [email or web address] and attached to record. jls1 15:37 -Influenza A&B Rapid Antigen - Nose Reviewed. ar2 15:39 GATS (NEGATIVE STREP SCREEN) Ordered. EDMS 15:42 Oseltamivir 75 mg PO once ordered. ar2 06/07 17:45 T-Sheet-- Draft Copy was scanned into [email or web address] and attached to record. klr Administered Medications: 06/06 14:55 Drug: NS 0.9% 1000 ml [sodium chloride 0.9 % intravenous solution] Route: IV; Rate: srm bolus; Site: right antecubital; 16:11 Follow up: IV Status: Completed infusion; IV Intake: 1000ml dsf 14:55 Drug: Ondansetron 4 mg [ondansetron HCl 2 mg/mL intravenous solution (2 mL)] Route: srm IVP; Site: right antecubital; 14:55 Drug: Acetaminophen 975 mg [acetaminophen 325 mg tablet (3 tabs)] Route: PO; srm 15:47 Drug: Oseltamivir 75 mg [oseltamivir 75 mg capsule (1 caps)] Route: PO; srm Signatures: Dispatcher [employer] EDMS Collette Ugarte RN RN [facility] Emerson Lacey PA-C PA-C arCadence Bragg RN RN [facility] Lilliana EstesRN RN Malissa Mccray [facility] Hernandez Boyd RN RN Rosy Beasley The chart was reviewed and I authenticate all verbal orders and agree with the evaluation and treatment provided.Attachments: 14:56 [facility] Payment Agreement jls1 06/07 17:45 T-Sheet-- Draft Copy klr Chart Complete MTDD
--- NOTE | 2016-06-08 17:13 | EDDOCDS ---
Physician Documentation [facility] Name: Maribel Hamlin Age: 65 yrs Sex: Female : 1950 Arrival Date: 06/06/2016 Time: 12:02 Bed I1 / M1 Private MD: Amisha Zambrano E Disposition: 06/06/16 15:45 Discharged to Home/Self Care. Impression: Influenza due to identified novel influenza A virus. - Condition is Stable. - Discharge Instructions: Influenza Adult. - Prescriptions for Tamiflu 75 mg Oral Capsule - take 1 capsule by ORAL route every 12 hours for 5 days; 9 capsule. ZOFRAN ODT 4 mg - dissolve 1 tablet by ORAL route 4 times per day As needed do not chew, do not swallow whole; 10 tablet. - Medication Reconciliation, Work Release Form - 5 day, Local Pharmacy Hours form. - Follow up: Amisha Zambrano; When: 4 - 5 days; Reason: Recheck today's complaints. Follow up: Emergency Department; When: As needed; Reason: Fever > 102F, Trouble breathing, Worsening of conditions. - Problem is new. - Symptoms have improved. - Notes: stop z pack Historical: - Allergies: Ibuprofen; - Home Meds: 1. bisoprolol fumarate 5 mg oral tab 1 tab once daily (Last dose: 06/05/2016) 2. calcium 600 mg daily (Last dose: 06/05/2016) 3. fexofenadine 180 mg Oral tab 1 tab once daily (Last dose: 06/05/2016) 4. valsartan 160 mg oral tab 1 tab once daily with dinner (Last dose: 06/05/2016) 5. multivitamin Oral 1 tablet daily 6. Vitamin C Oral daily - PMHx: Hypertension; - PSHx: Hip replacements, bilateral; - Social history: Smoking status: Patient states former smoker of tobacco. No barriers to communication noted. - Family history: Not pertinent. - : The pt / caregiver states he / she is not on anticoagulants. Home medication list is obtained from the patient. - Exposure Risk Screening:: None identified. Vital Signs: 06/06 12:04 BP 155 / 93; Pulse 112; Resp 18 S; Temp 100.0(O); Pulse Ox 96% on R/A; Weight 104.33 kg gr2 / 230.01 lbs (R); Height 5 ft. 8 in. (172.72 cm) (R); Pain 6/10; 15:31 BP 127 / 64; Pulse 97; Resp 20; Temp 100.9; Pulse Ox 96% ; Pain 3/10; jam1 12:04 Body Mass Index 34.97 (104.33 kg, 172.72 cm) gr2 MDM: 12:36 If pre-RCE wait time >60 minutes, inform reg. staff to do full reg ordered. ar2 12:36 If pt is female >10yo <50yo order UCG ordered. ar2 12:36 Undress patient appropriately for examination ordered. ar2 12:36 BMP Ordered. EDMS 12:36 CBC with Diff Ordered. EDMS 12:36 Lipase Ordered. EDMS 12:36 Liver Profile Ordered. EDMS 12:37 UA Ordered. EDMS 14:34 BMP Reviewed. ar2 14:34 CBC with Diff Reviewed. ar2 14:34 Liver Profile Reviewed. ar2 14:34 UA Reviewed. ar2 14:34 Lipase Reviewed. ar2 14:37 Strep Screen, Nursing ordered. ar2 14:37 NS 0.9% 1000 ml IV at bolus once ordered. ar2 14:37 Ondansetron 4 mg IVP once ordered. ar2 14:37 Acetaminophen Tablet 975 mg PO once ordered. ar2 14:38 -Influenza A&B Rapid Antigen - Nose Ordered. EDMS 14:38 Chest, 2 View (pa\E\lat) Ordered. EDMS 14:38 Acetaminophen Tablet 975 mg PO once ordered. jf3 14:38 Ondansetron 4 mg IVP once ordered. jf3 14:38 NS 0.9% 1000 ml IV at bolus once ordered. jf3 14:39 IV Saline Lock ordered. jf3 14:41 Financial registration complete. jls1 14:56 [facility] Payment Agreement was scanned into [employer] and attached to record. jls1 15:37 -Influenza A&B Rapid Antigen - Nose Reviewed. ar2 15:39 GATS (NEGATIVE STREP SCREEN) Ordered. EDMS 15:42 Oseltamivir 75 mg PO once ordered. ar2 06/07 17:45 T-Sheet-- Draft Copy was scanned into [employer] and attached to record. klr Administered Medications: 06/06 14:55 Drug: NS 0.9% 1000 ml [sodium chloride 0.9 % intravenous solution] Route: IV; Rate: srm bolus; Site: right antecubital; 16:11 Follow up: IV Status: Completed infusion; IV Intake: 1000ml dsf 14:55 Drug: Ondansetron 4 mg [ondansetron HCl 2 mg/mL intravenous solution (2 mL)] Route: srm IVP; Site: right antecubital; 14:55 Drug: Acetaminophen 975 mg [acetaminophen 325 mg tablet (3 tabs)] Route: PO; srm 15:47 Drug: Oseltamivir 75 mg [oseltamivir 75 mg capsule (1 caps)] Route: PO; srm Signatures: Dispatcher [employer] EDMS Collette Ugarte RN RN [facility] Emerson Lacey PA-C PA-C arCadence Bragg RN RN [facility] Lilliana EstesRN RN Malissa Mccray [facility] Hernandez Boyd RN RN Rosy Beasley The chart was reviewed and I authenticate all verbal orders and agree with the evaluation and treatment provided.Attachments: 14:56 [facility] Payment Agreement jls1 06/07 17:45 T-Sheet-- Draft Copy klr Chart Complete MTDD
== END 2016-06-06 16:12 | disposition home or self-care (01) ==
LOC: M ED 12:02
DX: J09.X2 Influenza due to identified novel influenza A virus with other respiratory manifestations (principal); E86.0 Dehydration; R00.0 Tachycardia, unspecified; I10 Essential (primary) hypertension; Z87.891 Personal history of nicotine dependence; Z79.899 Other long term (current) drug therapy
CPT/HCPCS: 36415; 71020; 80048; 80076; 81001; 83690; 85025; 87804; 87880; 96361; 96374; 99284; J2405

== ENCOUNTER → 2016-10-21 | Outpatient (CLI) | payer MEDICARE, BC ==
--- NOTE | 2016-10-21 10:50 | REPMRS ---
Patient History The patient states she had a clinical breast exam in 10/2016. Patient is postmenopausal. No known family history of cancer. Took hormonal contraceptives for 4 years. Digital Woman Screen Mammo: October 21, 2016 - Exam #: [id number] Bilateral CC and MLO view(s) were taken. Technologist: Linn Tomas Technologist Prior study comparison: October 21, 2015, digital woman screen mammo performed at [facility]. October 17, 2014, digital woman screen mammo performed at [facility]. October 10, 2013, digital woman screen mammo performed at [facility]. FINDINGS: The breast tissue is almost entirely fat. There has been no change in the appearance of the mammogram from the prior studies. There is no interval development of dominant mass, architectural distortion, or clustered microcalcification typical of malignancy. ASSESSMENT: BI-RADS/ACR category 1 mammogram. Negative. Recommendation Routine screening mammogram of both breasts in 1 year (for women over age 40). This mammogram was interpreted with the aid of an FDA-approved computer-aided dectection system. Electronically Signed By: Kalin Bustamante MD 10/21/16 1147
== END ==
LOC: M WHC 08:43
PROVIDERS: ATTEND Nurse Practitioner Women's Health
DX: Z12.31 Encounter for screening mammogram for malignant neoplasm of breast (principal); Z78.0 Asymptomatic menopausal state
CPT/HCPCS: G0202; G0463

== ENCOUNTER 2017-05-08 10:48 | Emergency (ER) | payer MEDICARE, BC ==
[~2017-05-08] VITALS: Ht 170.2 cm; Wt 104.5 kg
[2017-05-08] MEDS ORDERED: VALS1TAB47 (10:59)
[2017-05-08] MEDS ORDERED: MONT10TA2 (10:59)
[2017-05-08] MEDS ORDERED: NORCOTAB PO (12:41)
[2017-05-08] MEDS ORDERED: NORCO, ANEXSIA 5/325MG TABLET (HYDROcodone/ACETAMINOPHEN) PO ONE (13:00)
[2017-05-08 13:40] VITALS: BP 148/98
--- NOTE | 2017-05-08 18:15 | ED PDOC ---
Post-Departure Follow-Up BP was rechecked after pain medication was given. Patient has follow up appointment with PCP next week because they are currently working on getting her diastolic pressure into therapeutic range. Advised patient to return for any chest pain, shortness of breath, headache, numbness/weakness and visual changes. Close follow up with PCP. Will D/C home with follow up with PCP. INDIRA SARMIENTO PA-C May 08, 2017 18:14
== END 2017-05-08 13:42 | disposition home or self-care (01) ==
LOC: M ED 10:48
DX: M25.561 Pain in right knee (principal); I10 Essential (primary) hypertension

== ENCOUNTER → 2017-07-28 | Outpatient (REF) | payer MEDICARE, BC ==
[2017-07-28 17:49] LABS: CREATININE FOR GFR 1.26 MG/DL (0.55-1.30)
[2017-07-28 17:49] LABS: BLOOD UREA NITROGEN 23 MG/DL (7-18)
== END ==
LOC: M LABDRAW1 14:31
DX: R22.41 Localized swelling, mass and lump, right lower limb (principal)
CPT/HCPCS: 82565

== ENCOUNTER → 2017-07-30 | Outpatient (CLI) | payer MEDICARE, BC | LOC: M PLARAD 09:23 | DX: R22.41 Localized swelling, mass and lump, right lower limb (principal); R93.7 Abnormal findings on diagnostic imaging of other parts of musculoskeletal system | CPT/HCPCS: 73723 ==

== ENCOUNTER 2017-09-08 10:35 | Day surgery (SDC) | payer MEDICARE, BC ==
[~2017-09-08 10:35] MED LIST changes: -/WARF25TA OR; -ACET500C OR; -BIOTPOW20 PO; -BISO10TA2 OR; -CALC12502 OR; -CALCTAB22 OR; +LIDOCAINE 2% MDV 20 ML VIAL As Ordered; -MULTIVIT PO; -PERC5TAB8 OR; +PROPOFOL 200 MG/20 ML VIAL As Ordered; -VIT D 2000 PO; -VITA500T OR; -VITAMIN D PO
[2017-09-08] MEDS: NS 1,000 ML IV (10:50)
== END 2017-09-08 11:56 | disposition home or self-care (01) ==
LOC: M OPP 10:35
DX: Z12.11 Encounter for screening for malignant neoplasm of colon (principal); K64.0 First degree hemorrhoids; K57.30 Diverticulosis of large intestine without perforation or abscess without bleeding; I10 Essential (primary) hypertension; R06.02 Shortness of breath; M19.90 Unspecified osteoarthritis, unspecified site; Z78.0 Asymptomatic menopausal state; R06.83 Snoring; Z96.643 Presence of artificial hip joint, bilateral; Z88.8 Allergy status to other drugs, medicaments and biological substances; Z88.5 Allergy status to narcotic agent; Z91.040 Latex allergy status; Z79.899 Other long term (current) drug therapy
CPT/HCPCS: G0121

== ENCOUNTER 2017-10-04 06:07 | Day surgery (SDC) | payer MEDICARE, BC ==
[2017-10-04] MEDS ORDERED: LR 1,000 ML IV ×3 (06:30→10:30)
[2017-10-04] MEDS ORDERED: PROPOFOL 200 MG/20 ML VIAL As Ordered (07:02)
[2017-10-04] MEDS ORDERED: fentaNYL 100 MCG/2 ML INJECTION (J3010) As Ordered (07:11)
[2017-10-04] MEDS ORDERED: MIDAZOLAM INJ 2 MG/2 ML VIAL (J2250) As Ordered (07:11)
[2017-10-04] MEDS ORDERED: ROCURONIUM BROMIDE 50 MG/5 ML VIAL As Ordered (07:11)
[2017-10-04] MEDS ORDERED: LIDOCAINE 2% INJ 100 MG/5 ML SDV (FOR ANES.) As Ordered (07:11)
[2017-10-04] MEDS ORDERED: ONDANSETRON 4MG/2ML VIAL (J2405) As Ordered (08:16)
[2017-10-04] MEDS ORDERED: METOCLOPRAMIDE INJ 10MG/2ML VIAL (J2765) As Ordered (08:16)
[2017-10-04] MEDS ORDERED: GLYCOPYRROLATE INJ 0.2 MG/ML 2 ML VIAL As Ordered (08:32)
[2017-10-04] MEDS ORDERED: NEOSTIGMINE 10 MG/10 ML VIAL (J2710) As Ordered ×2 (08:32)
[2017-10-04] MEDS ORDERED: HYDROmorphone HCL 2 MG/ML 1ML VIAL (J1170) As Ordered (09:33)
[2017-10-04] MEDS: BUPIVACAINE HCL 0.5% 30 ML VIAL As Ordered (09:53)
[2017-10-04] MEDS ORDERED: HYDROMORPHONE HCL 0.5 MG/ 0.5 ML SYRINGE (J1170 PER 1) IV (10:15)
[2017-10-04] MEDS ORDERED: ONDANSETRON 4MG/2ML VIAL (J2405) IV (10:15)
[2017-10-04] MEDS ORDERED: fentaNYL 100 MCG/2 ML INJECTION (J3010) IV (10:15)
[2017-10-04] MEDS ORDERED: PERCOCET 5MG/325MG TAB PO (10:15)
== END 2017-10-04 12:15 | disposition home or self-care (01) ==
LOC: M SDC 06:07
DX: M23.261 Derangement of other lateral meniscus due to old tear or injury, right knee (principal); M94.261 Chondromalacia, right knee; S82.121A Displaced fracture of lateral condyle of right tibia, initial encounter for closed fracture; S72.421A Displaced fracture of lateral condyle of right femur, initial encounter for closed fracture; M18.11 Unilateral primary osteoarthritis of first carpometacarpal joint, right hand; I12.9 Hypertensive chronic kidney disease with stage 1 through stage 4 chronic kidney disease, or unspecified chronic kidney disease; R06.83 Snoring; N18.2 Chronic kidney disease, stage 2 (mild); E55.9 Vitamin D deficiency, unspecified; Z88.5 Allergy status to narcotic agent; Z88.6 Allergy status to analgesic agent; Z79.899 Other long term (current) drug therapy; Z78.0 Asymptomatic menopausal state; Z87.891 Personal history of nicotine dependence; Z96.643 Presence of artificial hip joint, bilateral; X58.XXXA Exposure to other specified factors, initial encounter; Y92.89 Other specified places as the place of occurrence of the external cause; Y93.89 Activity, other specified; Y99.8 Other external cause status
CPT/HCPCS: 29881

== ENCOUNTER → 2017-11-16 | Outpatient (REF) | payer MEDICARE, BC ==
[2017-11-16 12:53] LABS: NT-PRO BNP 459 PG/ML (<125)
== END ==
LOC: M LAB REF 12:08
DX: R06.02 Shortness of breath (principal)
CPT/HCPCS: 83880

== ENCOUNTER → 2017-11-25 | Outpatient (CLI) | payer MEDICARE, BC | LOC: M WHC 08:21 | DX: Z01.419 Encounter for gynecological examination (general) (routine) without abnormal findings (principal); Z12.31 Encounter for screening mammogram for malignant neoplasm of breast (principal); Z78.0 Asymptomatic menopausal state; Z92.0 Personal history of contraception; Z96.643 Presence of artificial hip joint, bilateral | CPT/HCPCS: 77067 ==

== ENCOUNTER → 2017-11-25 | Outpatient (CLI) | payer MEDICARE, BC | LOC: M WHC 08:16 | DX: Z12.31 Encounter for screening mammogram for malignant neoplasm of breast (principal); Z92.0 Personal history of contraception | CPT/HCPCS: 77067 ==

== ENCOUNTER → 2018-11-25 | Outpatient (CLI) | payer MEDICARE, BC ==
[~2018-11-25] MED LIST changes: +ACET500C OR; +BIOTPOW20 PO; +BISO10TA2 OR; +CALC12502 OR; +CALCTAB22 OR; +CHLO25TA PO; +COUM1TAB18 OR; +HYDR-3715 PO; -LIDOCAINE 2% MDV 20 ML VIAL As Ordered; +MONT10TA2 PO; +MULTIVIT PO; +PERC5TAB8 OR; -PROPOFOL 200 MG/20 ML VIAL As Ordered; +TYLE325T5 PO; +VALS1TAB67 PO; +VIT D 2000 PO; +VITA500T OR; +VITAMIN D PO
--- NOTE | 2018-11-25 10:48 | REPMRS ---
Patient History The patient states she had a clinical breast exam in 11/2018. Patient is postmenopausal. Family history of ovarian cancer at age 50 or over in sister. Took hormonal contraceptives for 4 years. 3D TOMOSYNTHESIS WAS PERFORMED. The [facility] lifetime risk for breast cancer is 4.0%. Digital Woman Screen Mammo: November 25, 2018 - Exam #: [id number] Bilateral CC and MLO view(s) were taken. Technologist: Stefanie Shanks, Technologist Prior study comparison: November 25, 2017, bilateral digital woman screen mammo performed at [facility]. October 21, 2016, digital woman screen mammo performed at [facility]. FINDINGS: There are scattered fibroglandular densities. There has been no change in the appearance of the mammogram from the prior studies. There is a mild amount of residual fibroglandular tissue which is fairly symmetric. There is no interval development of dominant mass, architectural distortion, or clustered microcalcification suggestive of malignancy. Assessment: BI-RADS/ACR category 1 mammogram. Negative Mammogram. Recommendation Routine screening mammogram in 1 year (for women over age 40). This mammogram was interpreted with the aid of an FDA-approved computer-aided dectection system. Electronically Signed By: Cornelius Rodriguez MD 11/25/18 [id number]
== END ==
LOC: M WHC 08:42
PROVIDERS: ATTEND Nurse Practitioner Women's Health
DX: Z12.31 Encounter for screening mammogram for malignant neoplasm of breast (principal); Z78.0 Asymptomatic menopausal state; Z80.41 Family history of malignant neoplasm of ovary; Z92.0 Personal history of contraception
CPT/HCPCS: 77063; 77067; G0463

== ENCOUNTER → 2019-11-27 | Outpatient (CLI) | payer MEDICARE, BC ==
[~2019-11-27] MED LIST changes: -MONT10TA2 PO; +MONT10TA4 PO
--- NOTE | 2019-11-27 10:18 | REPMRS ---
Patient History The patient states she had a clinical breast exam in November 2019. Family history of ovarian cancer at age 50 or over in sister. Took hormonal contraceptives for 4 years. 3D TOMOSYNTHESIS WAS PERFORMED. [facility]%. SHANNON GUEVARA A. Digital Woman Screen Mammo: November 27, 2019 - Exam #: [id number] Bilateral CC and MLO view(s) were taken. Technologist: Ashley Fernando, Technologist Prior study comparison: November 25, 2018, bilateral digital woman screen mammo performed at [facility]. November 25, 2017, bilateral digital woman screen mammo performed at [facility]. FINDINGS: There are scattered fibroglandular densities. There has been no change in the appearance of the mammogram from the prior studies. There is a mild amount of residual fibroglandular tissue which is fairly symmetric. There is no interval development of dominant mass, architectural distortion, or clustered microcalcification suggestive of malignancy. Assessment: BI-RADS/ACR category 1 mammogram. Negative Mammogram. Recommendation Routine screening mammogram in 1 year (for women over age 40). This mammogram was interpreted with the aid of an FDA-approved computer-aided dectection system. Electronically Signed By: Cornelius Rodriguez MD 11/27/19 1010
== END ==
LOC: M WHC 08:07
PROVIDERS: ATTEND Nurse Practitioner Women's Health
DX: Z12.31 Encounter for screening mammogram for malignant neoplasm of breast (principal); Z80.41 Family history of malignant neoplasm of ovary; Z92.0 Personal history of contraception

== ENCOUNTER → 2020-11-27 | Outpatient (CLI) | payer MEDICARE, BC ==
[~2020-11-27] MED LIST changes: +MONT10TA10 PO; -MONT10TA4 PO
--- NOTE | 2020-11-27 13:21 | REPMRS ---
Patient History The patient states she has not had a clinical breast exam in over a year. Family history of ovarian cancer at age 50 or over in sister. Took hormonal contraceptives for 4 years. Patient states no breast complaints today. Patient has signed MRS History Sheet. Digital Woman Screen Mammo: November 27, 2020 - Exam #: [id number] Bilateral CC and MLO view(s) were taken. Technologist: Lisseth Quintero, Technologist Prior study comparison: November 27, 2019, bilateral digital woman screen mammo performed at [facility]. November 25, 2018, bilateral digital woman screen mammo performed at [facility]. FINDINGS: There are scattered fibroglandular densities. Screening. Digital screening (2D) mammography was performed bilaterally in the CC and MLO projections. Additionally, breast tomosynthesis (3D mammography) was performed bilaterally in the CC and MLO projections. Todays exam was compared to the prior exam/exams. By history, the patient has no complaints of a palpable breast abnormality or other significant breast complaints. The breasts are unchanged in size and shape. There are no ashleigh-soft tissue densities or spiculated masses. There is no internal architectural distortion. There are no suspicious ashleigh-calcific clusters. Skin thickening or nipple retraction is not present. IMPRESSION: BI-RADS Category 1- Benign Findings. There is no evidence of malignant alteration of the breasts. Followup examination recommended in one year. The Volpara volumetric breast density category is B, there are scattered areas of fibroglandular densities. This mammogram was read with the assistance of [facility] [employer],an FDA approved computer aided detection system for mammography. The lifetime Tyrer-Cuzick score is 3.5 % Negative x-ray reports should not delay surgical consultation if a dominant or clinically suspicious mass is present. Not all breast cancers can be identified by mammography. Therefore, we recommend that you continue to perform regular breast self-examination and physical examination and then promptly contact your physician of any concerns or changes. Adenosis and dense breasts may obscure an underlying neoplasm. Assessment: BI-RADS/ACR category 1 mammogram. Negative Mammogram. Recommendation Routine screening mammogram of both breasts in 1 year. Electronically Signed By: Kevon Salinas DO 11/27/20 08
== END ==
LOC: M WHC 07:57
PROVIDERS: ATTEND Nurse Practitioner Women's Health
DX: Z12.31 Encounter for screening mammogram for malignant neoplasm of breast (principal); Z80.41 Family history of malignant neoplasm of ovary

== ENCOUNTER 2023-03-26 09:40 | Inpatient (IN) | payer MEDICARE, BC ==
[~2023-03-26] VITALS: Ht 170.2 cm; Wt 99.8 kg
[~2023-03-26 09:40] MED LIST changes: -MONT10TA10 PO; +MONT10TA97 PO
[2023-03-26] MEDS ORDERED: LOSA100T46 PO (09:55)
[2023-03-26] MEDS ORDERED: TORS10TA3 PO (09:55)
[2023-03-26] MEDS ORDERED: dexAMETHasone 20MG/5ML VIAL IV ONE (10:30)
[2023-03-26] MEDS ORDERED: VANCOMYCIN HCL 2,000 MG in D5W 500 ML IV ONE (10:40)
[2023-03-26] MEDS ORDERED: AMPICILLIN SOD/SULBACTAM SOD 3 GM in D5W MINI-BAG PLUS 100 ML IV ONE (10:40)
[2023-03-26] MEDS ORDERED: VANCOMYCIN HCL 1,000 MG, VIAL MATE ADAPTER 1 EACH in D5W 250 ML IV ONE ×2 (11:00→12:00)
[2023-03-26 11:01] LABS: BASO # 0.1 10^3/uL (0.0-0.2); BASO % 0.4 % (0.0-1.0); EOS % 0.1 % (0.0-3.0); HEMATOCRIT 42.1 % (36.0-47.0); HEMOGLOBIN 13.8 g/dl (12.0-15.5); LYMPH # 1.1 10^3/uL (1.5-5.0); LYMPH % 7.5 % (24.0-44.0); MEAN CORPUSCULAR HEMOGLOBIN 30.4 pg (27.0-33.0); MEAN CORPUSCULAR HGB CONC 32.8 g/dl (32.0-36.5); MEAN CORPUSCULAR VOLUME 92.7 fl (80.0-96.0); MONO % 7.1 % (2.0-8.0); NEUTROPHILS # 12.2 10^3/uL (1.5-8.5); NEUTROPHILS % 84.6 % (36.0-66.0); PLATELET COUNT, AUTOMATED 253 10^3/uL (150-450); RED BLOOD COUNT 4.54 10^6/uL (4.00-5.40); WHITE BLOOD COUNT 14.4 10^3/uL (4.0-10.0)
[2023-03-26 11:09] LABS: ERYTHROCYTE SEDIMENTATION RATE 40 mm/hr (0-30)
[2023-03-26 11:23] LABS: BLOOD UREA NITROGEN 19 MG/DL (9-23); CALCIUM LEVEL 10.1 MG/DL (8.3-10.6); CARBON DIOXIDE LEVEL 29 MMOL/L (20-31); CHLORIDE LEVEL 106 MMOL/L (98-107); CREATININE FOR GFR 1.08 MG/DL (0.55-1.30); GLOMERULAR FILTRATION RATE 52.8 (>39); GLUCOSE, FASTING 113 MG/DL (74-106); POTASSIUM SERUM 4.2 MMOL/L (3.5-5.1); SODIUM LEVEL 142 MMOL/L (136-145)
[2023-03-26] MEDS ORDERED: ISOVUE-370 76% 100ML VIAL As Ordered ONE (11:37)
[2023-03-26] MEDS ORDERED: MOM 30ML SUSPENSION UDC PO PRN (14:15)
[2023-03-26] MEDS ORDERED: ACETAMINOPHEN TAB 650MG DOSE (2X325MG) PO PRN (14:15)
[2023-03-26] MEDS: bisoproloL fumarate 10 MG TAB PO SCH (14:20)
[2023-03-26] MEDS ORDERED: MED REC IN PROGRESS XX SCH (14:25)
[2023-03-26 15:25] LABS: PROCALCITONIN <0.04 ng/ml
[2023-03-26 15:26] LABS: INR 0.99; PROTHROMBIN TIME 12.8 SECONDS (12.5-14.5)
[2023-03-26] MEDS ORDERED: ASCO500T PO (15:38)
[2023-03-26] MEDS ORDERED: MULT-40 PO (15:38)
[2023-03-26] MEDS ORDERED: CALC600T86 PO (15:38)
[2023-03-26] MEDS ORDERED: ACET1TAB55 PO (15:38)
[2023-03-26] MEDS ORDERED: BISO5TAB14 PO (15:38)
[2023-03-26] MEDS ORDERED: HOME MED LIST COMPLETE! XX SCH (15:50)
[2023-03-26] MEDS: CHLORTHALIDONE 25 MG TAB PO SCH (16:15)
[2023-03-26] MEDS: LOSARTAN 50MG TABLET PO SCH (16:20)
[2023-03-26] MEDS: TORSEMIDE 10 MG TABLET PO SCH (16:20)
[2023-03-26 16:50] VITALS: BP 125/77; TEMP 98.4; O2SAT 93
[2023-03-26] MEDS: AMPICILLIN SOD/SULBACTAM SOD 3 GM in D5W MINI-BAG PLUS 100 ML IV SCH ×2 (18:02→23:31)
[2023-03-26] MEDS ORDERED: dexAMETHasone 20MG/5ML VIAL IV SCH (19:00)
[2023-03-26 19:39] VITALS: BP 125/74; TEMP 98.7; O2SAT 95
[2023-03-26] MEDS: dexAMETHasone 20MG/5ML VIAL IV SCH (21:36)
[2023-03-26] MEDS: HEPARIN SOD (PORCINE) 5000UNITS/ML 1ML VIAL/SYRINGE SQ SCH (21:37)
[2023-03-26] MEDS: DOCUSATE SODIUM 100MG CAPSULE PO SCH (21:38)
[2023-03-26 23:58] VITALS: BP 131/69; TEMP 97.3; O2SAT 91
[2023-03-27] VITALS (19 sets, daily range): BP systolic 120–140; BP diastolic 60–76; TEMP 97.3–98; O2SAT 91–98
[2023-03-27] MEDS: AMPICILLIN SOD/SULBACTAM SOD 3 GM in D5W MINI-BAG PLUS 100 ML IV SCH ×4 (05:54→23:32)
[2023-03-27] MEDS: HEPARIN SOD (PORCINE) 5000UNITS/ML 1ML VIAL/SYRINGE SQ SCH (05:54)
[2023-03-27] MEDS: dexAMETHasone 20MG/5ML VIAL IV SCH ×3 (05:54→21:47)
[2023-03-27 06:19] LABS: BASO % 0.1 % (0.0-1.0); HEMATOCRIT 38.6 % (36.0-47.0); HEMOGLOBIN 12.9 g/dl (12.0-15.5); LYMPH # 1.1 10^3/uL (1.5-5.0); LYMPH % 7.5 % (24.0-44.0); MEAN CORPUSCULAR HEMOGLOBIN 30.4 pg (27.0-33.0); MEAN CORPUSCULAR HGB CONC 33.4 g/dl (32.0-36.5); MONO # 0.5 10^3/uL (0.0-0.8); MONO % 3.6 % (2.0-8.0); NEUTROPHILS % 88.4 % (36.0-66.0); PLATELET COUNT, AUTOMATED 232 10^3/uL (150-450); RED BLOOD COUNT 4.24 10^6/uL (4.00-5.40); WHITE BLOOD COUNT 14.7 10^3/uL (4.0-10.0)
[2023-03-27 06:42] LABS: C REACTIVE PROTEIN QUANTITATIV 10.7 MG/DL (<1.0)
[2023-03-27 06:44] LABS: CALCIUM LEVEL 9.5 MG/DL (8.3-10.6); CREATININE FOR GFR 1.19 MG/DL (0.55-1.30); GLOMERULAR FILTRATION RATE 47.2 (>39); POTASSIUM SERUM 3.8 MMOL/L (3.5-5.1)
[2023-03-27 07:12] LABS: ERYTHROCYTE SEDIMENTATION RATE 43 mm/hr (0-30)
[2023-03-27] MEDS: LR 1,000 ML IV SCH ×2 (09:30→16:46)
[2023-03-27] MEDS: TORSEMIDE 10 MG TABLET PO SCH (09:34)
[2023-03-27] MEDS: LOSARTAN 50MG TABLET PO SCH (09:34)
[2023-03-27] MEDS: bisoproloL fumarate 10 MG TAB PO SCH (09:34)
[2023-03-27] MEDS: DOCUSATE SODIUM 100MG CAPSULE PO SCH ×2 (09:35→21:47)
[2023-03-27] MEDS: CHLORTHALIDONE 25 MG TAB PO SCH (09:35)
[2023-03-27] MEDS: CHLORHEXIDINE GLUCONATE 0.12 % 15ML UDC (PERIDEX ORAL RINSE) SSP SCH ×3 (09:35→21:47)
[2023-03-27] MEDS ORDERED: CHLORHEXIDINE GLUCONATE 0.12 % 15ML UDC (PERIDEX ORAL RINSE) SSP SCH (23:30)
[2023-03-28] VITALS (14 sets, daily range): BP systolic 138–150; BP diastolic 70–92; TEMP 95.8–98.4; O2SAT 91–98
[2023-03-28] MEDS: AMPICILLIN SOD/SULBACTAM SOD 3 GM in D5W MINI-BAG PLUS 100 ML IV SCH ×2 (05:23→11:00)
[2023-03-28] MEDS: dexAMETHasone 20MG/5ML VIAL IV SCH (05:24)
[2023-03-28 05:47] LABS: BASO % 0.1 % (0.0-1.0); HEMATOCRIT 39.6 % (36.0-47.0); HEMOGLOBIN 13.4 g/dl (12.0-15.5); LYMPH # 1.2 10^3/uL (1.5-5.0); LYMPH % 6.8 % (24.0-44.0); MEAN CORPUSCULAR HEMOGLOBIN 30.5 pg (27.0-33.0); MEAN CORPUSCULAR HGB CONC 33.8 g/dl (32.0-36.5); MEAN CORPUSCULAR VOLUME 90.2 fl (80.0-96.0); MONO # 0.7 10^3/uL (0.0-0.8); MONO % 4.3 % (2.0-8.0); NEUTROPHILS # 15.2 10^3/uL (1.5-8.5); NEUTROPHILS % 88.2 % (36.0-66.0); PLATELET COUNT, AUTOMATED 269 10^3/uL (150-450); RED BLOOD COUNT 4.39 10^6/uL (4.00-5.40); WHITE BLOOD COUNT 17.2 10^3/uL (4.0-10.0)
[2023-03-28 06:12] LABS: CALCIUM LEVEL 9.5 MG/DL (8.3-10.6); CREATININE FOR GFR 1.31 MG/DL (0.55-1.30); GLOMERULAR FILTRATION RATE 42.3 (>39); POTASSIUM SERUM 3.6 MMOL/L (3.5-5.1)
[2023-03-28] MEDS ORDERED: LR 1,000 ML IV ONE (06:50)
[2023-03-28] MEDS: bisoproloL fumarate 10 MG TAB PO SCH (07:52)
[2023-03-28] MEDS: DOCUSATE SODIUM 100MG CAPSULE PO SCH (07:52)
[2023-03-28] MEDS: CHLORHEXIDINE GLUCONATE 0.12 % 15ML UDC (PERIDEX ORAL RINSE) SSP SCH (07:52)
[2023-03-28] MEDS: CHLORTHALIDONE 25 MG TAB PO SCH (07:54)
[2023-03-28] MEDS ORDERED: CHLO25TA PO (10:14)
[2023-03-28] MEDS ORDERED: PERI12LIQ SSP (10:14)
[2023-03-28] MEDS ORDERED: AMOX875T2 PO (10:14)
== END 2023-03-28 12:14 | disposition home or self-care (01) | DRG 158 ==
LOC: M ED 11:27 → M ED INP 14:12 → ENRESERV 14:47 → M PCU 16:50
PROVIDERS: ADMIT Student in an Organized Health Care Education/Training Program; ATTEND Student in an Organized Health Care Education/Training Program
DX: K12.2 Cellulitis and abscess of mouth (principal); N17.9 Acute kidney failure, unspecified; I10 Essential (primary) hypertension; R59.1 Generalized enlarged lymph nodes; Z79.899 Other long term (current) drug therapy; Z88.5 Allergy status to narcotic agent; Z88.6 Allergy status to analgesic agent; Z87.891 Personal history of nicotine dependence; Z96.643 Presence of artificial hip joint, bilateral

== ENCOUNTER → 2024-02-24 | Outpatient (CLI) | payer MEDICARE, BC ==
[~2024-02-24] MED LIST changes: +ACET1TAB55 PO; +AMOX875T2 PO; +ASCO500T PO; +BISO5TAB14 PO; +CALC600T86 PO; +LOSA100T46 PO; +MULT-40 PO; +PERI12LIQ SSP; +TORS10TA3 PO
== END ==
LOC: M WHC 08:34
PROVIDERS: ATTEND Internal Medicine
DX: Z12.31 Encounter for screening mammogram for malignant neoplasm of breast (principal)

== ENCOUNTER → 2024-03-01 | Outpatient (CLI) | payer MEDICARE, BC | LOC: M WUC 13:35 | PROVIDERS: ATTEND Physician Assistant | DX: M79.671 Pain in right foot (principal) ==

== ENCOUNTER → 2024-03-13 | Outpatient (CLI) | payer MEDICARE, BC | LOC: M RAD 12:49 | PROVIDERS: ATTEND Internal Medicine | DX: R09.89 Other specified symptoms and signs involving the circulatory and respiratory systems (principal) ==

== ENCOUNTER → 2024-03-28 | Outpatient (CLI) | payer MEDICARE, BC | LOC: M WHC 08:11 | PROVIDERS: ATTEND Internal Medicine | DX: R74.01 Elevation of levels of liver transaminase levels (principal); K80.20 Calculus of gallbladder without cholecystitis without obstruction ==

== ENCOUNTER → 2024-04-12 | Outpatient (CLI) | payer MEDICARE, BC | LOC: M RAD 10:30 | PROVIDERS: ATTEND Internal Medicine | DX: E04.2 Nontoxic multinodular goiter (principal); E07.89 Other specified disorders of thyroid ==

== ENCOUNTER → 2024-08-21 | Outpatient (REF) | payer MEDICARE, BC ==
[2024-08-22 20:05] LABS: % LABILE ALKALINE PHOSPHATASE 37.7 %
== END ==
LOC: M LAB REF 17:24
PROVIDERS: ATTEND Internal Medicine
DX: R74.8 Abnormal levels of other serum enzymes (principal)

== ENCOUNTER → 2024-09-19 | Outpatient (CLI) | payer MEDICARE, BC | LOC: M WHC 08:30 | PROVIDERS: ATTEND Internal Medicine | DX: R94.5 Abnormal results of liver function studies (principal) ==

== ENCOUNTER → 2025-03-01 | Outpatient (CLI) | payer MEDICARE, BC | LOC: M WHC 10:20 | PROVIDERS: ATTEND Internal Medicine | DX: Z12.31 Encounter for screening mammogram for malignant neoplasm of breast (principal); M81.0 Age-related osteoporosis without current pathological fracture ==